=== PATIENT | female | born 1970 | race Caucasian/White ===

== ENCOUNTER → 2017-11-14 | Outpatient (CLI) | payer BC ==
[~2017-11-14] MED LIST: ACET325T9 PO; AMIT50TA PO; BUPR150T6 PO; BUPR75TA6 PO; CYCL10TA2 PO; GADOBUTROL 10 MMOL/10 ML VIAL IV ONE; INSU100V31 SQ; MELA5LIQ PO; NAPR-683 PO; OMEP20TA8 PO; [UNRECOGNIZED DRUG - CODE] PO
--- NOTE | 2017-11-14 16:40 | KCIC ---
MRI Brain with and without contrast History: Disorder visual pathways, visual changes, lack of concentration, headache Technique: Multiplanar, multi sequential pre and postcontrast MR imaging was performed of the brain, dedicated images also acquired of the pituitary gland. Contrast: 7 cc Gadavist Comparison: None Findings: There is mild motion. There is no evidence of recent infarct or cytotoxic edema. The ventricles, sulci, and cisterns are within normal limits in size and configuration. There is no significant midline shift, intraaxial mass effect, or focal abnormal extra-axial fluid collection. There is no significant signal abnormality of the brain parenchyma. There is no nodular parenchymal or leptomeningeal enhancement. There is preservation of the major intracranial flow-voids at the skull base. The cerebellar tonsils are normal in location. There is no significant abnormality of the pineal gland or pituitary gland. There is very minimal patchy ethmoid air cell and right sphenoid sinus mucosal thickening. There is some fluid of the posterior left mastoid air cells, right mastoid air cells overall aerated. There is nonspecific decreased signal of the marrow of nonexpanded clivus, not associated with appreciable enhancement. No discrete mass is identified of the normal sized pituitary gland. Infundibulum is in the midline. Impression: 1. There is no significant intracranial abnormality. 2. Nonspecific decreased signal of the marrow of the nonexpanded clivus may be due to residual or hyperplastic red marrow. Electronically signed by: Shaw Rain MD (11/14/2017 4:37 PM) [id number]
== END | disposition home or self-care (01) ==
LOC: KCIC MRI 15:06
PROVIDERS: ATTEND Family Medicine
DX: H47.9 Unspecified disorder of visual pathways (principal); E11.9 Type 2 diabetes mellitus without complications
CPT/HCPCS: 70553; 82565; A9585

== ENCOUNTER → 2019-09-15 | Outpatient (CLI) | payer BC ==
[~2019-09-15] MED LIST changes: -GADOBUTROL 10 MMOL/10 ML VIAL IV ONE; +GADOTERATE 7.5 MMOL/15ML VIAL. IVP ONE
--- NOTE | 2019-09-15 13:54 | KCIC ---
BRAIN WO/W CONTRAST Date: 09/15/2019 11:45 AM Indication: Headache Comparison: 11/12/2017. Technique: Multiplanar multisequence MRI of the brain was performed with and without intravenous contrast using the standard protocol. 12 cc Dotarem contrast was administered intravenously during the exam. Findings: No acute infarct. No acute or chronic hemorrhage. The ventricles are normal in size and configuration without hydrocephalus. Increased signal in the right lateral temporal lobe on flair sequence does not persist when sequence is repeated and is artifactual. No abnormal enhancement. The scalp and calvarium are normal. The pituitary and sella are normal. No Chiari malformation. The visualized upper cervical spine is normal. The visualized orbits and globes are normal. The visualized paranasal sinuses are clear. Trace mastoid fluid. Normal flow voids within the vertebral, basilar, and internal carotid arteries indicating patency. IMPRESSION: 1. No acute infarct or hemorrhage. 2. No mass or abnormal enhancement. Electronically signed by: Shaw Irwin MD (09/15/2019 1:51 PM) [id number]
== END | disposition home or self-care (01) ==
LOC: KCIC MRI 11:29
PROVIDERS: ATTEND Family Medicine
DX: R51 Headache (principal)
CPT/HCPCS: 70553; A9575